=== PATIENT | male | born 1975 | race Caucasian/White ===

== ENCOUNTER 2016-08-01 10:54 | Emergency (ER) | payer BC, OTHER ==
[2016-08-01] MEDS ORDERED: Bacitracin/Neomycin/Polymyxin B Oint 0.9 GM U/D Packet TOP ONE (11:16)
--- NOTE | 2016-08-01 11:16 | EDM.PDOC ---
ED HPI GENERAL MEDICAL PROBLEM - General Chief Complaint: Laceration Stated Complaint: left forearm laceration Time Seen by Provider: 08/01/16 11:05 Source of Information: Reports: Patient, Old records ([facility] chart/EMR) History Limitations: Reports: No limitations - History of Present Illness INITIAL COMMENTS - FREE TEXT/NARRATIVE: The patient was brought to the emergency room via private automobile by his coworker for evaluation of a Worker's Compensation injury, which occurred at about 10:45 a.m. this morning. The patient was unloading a metal siding from a pallet when a piece of the siding slipped and cut his left arm. He has not injured this arm in the past and is right-handed. Note his last tetanus booster on 06/26/07 was confirmed by the ER nurse today. The patient denies any chest pain/pressure, heart flutter, dizziness, orthostasis, orthopnea, diaphoresis, paresthesias, recent decreased exercise tolerance, or any other anginal-type symptoms. No recent history of abdominal pain, heartburn, nausea, diarrhea, melena, gross hematochezia, or any food intolerance, including fatty foods, etc.. The patient also denies any recent fever, cough, wheezing, dyspnea , etc.. No history of recent headaches, visual changes, diplopia, change in mental status, or other change in neurological status. He rates his discomfort at 1/10 sharp in nature with no history of foreign body, paresthesias, neurological deficits, or other complaints or injury etc. Onset: today, sudden Onset Date: 08/01/16 Onset Time: 10:45 Duration: Constant Location: Reports: upper extremity, right. Denies: head, face, neck, chest, abdomen, back, pelvis, upper extremity, left, lower extremity, left, lower extremity, right, radiates to: Quality: Reports: Same as previous episode, Sharp Severity: mild Improves with: Reports: Rest Worsens with: Reports: Movement Context: Reports: Trauma (As above) Associated Symptoms: Reports: no other symptoms. 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 Denies: Afib, Aneurysm, Arrhythmia, Blood clots/VTE/DVT, CAD, High cholesterol , PR, Syncope Other Cardiovascular History: Hypertension with no required current medical therapy at this time, patient does not know his cholesterol status, benign heart murmur as a child with spontaneous resolution Respiratory History: Reports: None. Denies: Asthma, COPD, Intubation, previous , PE, Pneumothorax, Sleep apnea, TB Gastrointestinal History: Reports: None. Denies: Celiac disease, Cholelithiasis , Chronic constipation, Chronic diarrhea, Fecal incontinence, Gastritis, GERD, GI bleed, Hepatitis, Hiatal hernia, Inflammatory bowel disease, Irritable bowel syndrome, Jaundice, Pancreatitis, PUD Genitourinary History: Denies: Acute renal failure, Chronic renal insuffiency, Renal calculus, STD, Urinary incontinence, UTI, recurrent Musculoskeletal History: Reports: Arthritis, Back pain, chronic, Osteoarthritis , Other (see below). Denies: Amputation, Fracture, Gout, Neck pain, chronic, RA , SLE Other Musculoskeletal History: History of left-sided sciatica in 2011 Neurological History: Reports: Concussion, Head trauma, Other (see below). Denies: Cerebral aneurysms, CVA, Headaches, chronic, Migraines, MS, Neuropathy, peripheral, Parkinson's, Seizure, TIA Other Neuro History: Borderline Head concussion on 08/13/15 Psychiatric History: Reports: Anxiety, Depression. Denies: Abuse, victim of, ADD, ADHD, Addiction, Psych Hospitalization(s), PTSD, Suicide attempt, Suicidal ideation Endocrine/Metabolic History: Denies: Diabetes, type I, Diabetes, type II, Hypothyroidism, IDDM Hematologic History: Reports: None. Denies: Anemia, Blood transfusion(s), Iron deficiency Immunologic History: Reports: None. Denies: AIDS, HIV, SLE Oncologic (Cancer) History: Reports: None. Denies: Basal cell carcinoma, Hodgkin's Lymphoma, Leukemia, Lymphoma, Malignant melanoma, Non-Hodgkin's Lymphoma, Squamous cell carcinoma Dermatologic History: Reports: None. Denies: Eczema, Psoriasis - Infectious Disease History Infectious Disease History: Reports: Chicken pox. Denies: C-difficile, Measles , MRSA, Mumps, Pertussis (whooping cough), Rheumatic Fever, Rubella, Scarlet fever, Shingles, TB, VRE - Past Surgical History Head Surgeries/Procedures: Reports: None HEENT Surgical History: Reports: None. Denies: Adenoidectomy, Cataract surgery , Eye surgery, Laser surgery, LASIK, Myringotomy w tube(s), Naso-sinus surgery, Oral surgery, Tonsillectomy Cardiovascular Surgical History: Reports: None. Denies: Varicose, Vascular surgery Respiratory Surgical History: Reports: None. Denies: Thoracentesis GI Surgical History: Reports: Hernia, inguinal, Other (see below). Denies: Appendectomy, Cholecystectomy, Colonoscopy, EGD, Hernia, abdominal, Hernia repair/other Other GI Surgeries/Procedures: Right-sided inguinal hernia repair at about age 23 Male Surgical History: Reports: Circumcision, Other (see below). Denies: Vasectomy Other Male Surgeries/Procedures: Circumcision as an infant Endocrine Surgical History: Reports: None. Denies: Thyroid biopsy Neurological Surgical History: Reports: None. Denies: C-Spine, Discectomy, Laminectomy, Lumbar spine, Spinal fusion, Vertebroplasty Musculoskeletal Surgical History: Reports: None. Denies: Arthroscopic procedure , Carpal tunnel, Ganglion cyst, Joint replacement, ORIF, Shoulder surgery Oncologic Surgical History: Reports: None Dermatological Surgical History: Reports: None - Past Imaging History Past Imaging History: Reports: CAT scan (CT scan of the lumbar spine in 2011) Social & Family History - Tobacco Use Smoking Status *Q: Never Smoker Tobacco Use Within Last Twelve Months: No Smoking Cessation Information Provided To Patient: No Second Hand Smoke Exposure: No Second Hand Smoke Education Provided: No - Caffeine Use Caffeine Use: Reports: Coffee (1 coffee per day), Energy drinks (1 energy drink per week), Soda (Two sodas per week) Other Caffeine Use: coffee 1 20 0z. pop occasional. energy drinks occasional - Alcohol Use Alcohol Use History: Yes Days Per Week of Alcohol Use: 7 (DWI at age 21 with no previous problems of alcohol abuse or treatment) Number of Drinks Per Day: 5 (Usually beer) Total Drinks Per Week: 35 Alcohol Use in Last Twelve Months: Yes Alcohol Use Frequency: Daily - Recreational Drug Use Recreational Drug Use: No Drug Use in Last 12 Months: No Recreational Drug Type: Denies: Amphetamines (Speed), Cocaine, Heroin, Inhalants (Glues, Solvents, Aerosols), LSD (Acid), Marijuana/Hashish, Methamphetamine, Morphine - Living Situation & Occupation Living situation: Reports: (2005, 2 children), with family Occupation: employed ([employer]) ED ROS GENERAL - Review of Systems Review Of Systems: ROS reveals no pertinent complaints other than HPI. ED EXAM, SKIN/RASH Exam: See Below Exam Limited By: No Limitations General Appearance: Alert, WD/WN, No Apparent Distress Head: Atraumatic, Normocephalic. No: Facial Swelling, Facial Tenderness, Sinus Tenderness Neck: Normal Inspection, Supple, Non-Tender, Full Range of Motion. No: Lymphadenopathy (L), Lymphadenopathy (R), Thyromegaly Respiratory/Chest: No Respiratory Distress, Lungs Clear, Normal Breath Sounds, No Accessory Muscle Use, Chest Non-Tender. No: Pleural Rub Cardiovascular: Normal Peripheral Pulses, Regular Rate, Rhythm, No Edema, No Gallop, No JVD, No Murmur, No Rub. No: Gallop/S3, Gallop/S4 Peripheral Pulses: 4+: radial (L), radial (R) GI/Abdominal: Normal Bowel Sounds, Soft, Non-Tender, No Organomegaly, No Distention, No Abnormal Bruit, No Mass, Pelvis Stable. No: Guarding (Male) Exam: Deferred Rectal (Males) Exam: Deferred Back Exam: Normal Inspection, Full Range of Motion. No: CVA Tenderness (L), CVA Tenderness (R), Muscle Spasm Extremities: Normal Range of Motion, No Pedal Edema, Normal Capillary Refill, Arm Pain (Mild at laceration site), Other (4 cm in length laceration over the distal radial surface of the left forearm with no foreign body, deformity, or significant vascular/neurological injury) Neurological: Alert, Oriented, CN II-XII Intact, Normal Cognition, Normal Gait, No Motor/Sensory Deficits Psychiatric: Normal Affect, Normal Mood Skin: Warm, No Rash, Tattoo(s) (Multiple), Wound/Incision (As above) Location, Skin: upper extremity, left Characteristics: linear Associated features: tenderness (Mild). No: warmth, swelling, lymphangitis, inflammation, weeping Lymphatic: No Adenopathy ED SKIN PROCEDURES - Laceration/Wound Repair Left Lower Medial Distal Dorsal Arm Lac/wound length in cm: 4 Appearance: subcutaneous, linear, clean Distal NVT: neuro & vascular intact, no tendon injury Anesthetic type: local Local anesthesia - Lidocaine (Xylocaine): 1% plain Local anesthetic volume: other (8ml) Skin prep: providone-iodine (betadine) Saline irrigation (cc's): 0 Exploration/Debridement/Repair: wound explored, in a bloodless field, explored to base, no foreign material found Closed with: sutures Suture size: 4-0 # of sutures: 8 Suture type: nylon, interrupted, simple Sterile dressing applied: nurse Tetanus status addressed: Yes Complications: No Course - Vital Signs Last Recorded V/S: Last Vital Signs Temp 36.8 C 08/01/16 11:08 Pulse 59 L 08/01/16 11:08 Resp 18 08/01/16 11:08 BP 156/96 H 08/01/16 11:08 Pulse Ox 98 08/01/16 11:08 Vital Signs - 24 hr 08/01/16 08/01/16 11:08 11:52 Temperature [ 36.8 C Temporal] Pulse, 59 L Peripheral [ Right Pulse Oximetry] Respiratory 18 Rate Blood Pressure 156/96 H 150/96 H [Right Upper Arm] O2 Sat by Pulse 98 Oximetry - Orders/Labs/Meds Orders: Active Orders 24 hr Category Date Time Status Vaccines to be Administered [RC] PER UNIT ROUTINE Care 08/01/16 11:47 Ordered Diphth,Pertuss(Acell),Tet Vac [Adacel] Med 08/01/16 11:46 Once 0.5 ml IM .ONCE ONE Obtain Past Medical Record [OM.PC] Routine Oth 08/01/16 11:16 Ordered Labs: None Meds: Medications Discontinued Medications Generic Name Dose Route Start Last Admin Trade Name Ben PRN Reason Stop Dose Admin Lidocaine HCl 5 ml 08/01/16 11:16 08/01/16 11:23 Xylocaine-Mpf 1% INJECT 08/01/16 11:17 5 ml ONETIME ONE Administration Lidocaine HCl 5 ml 08/01/16 11:17 08/01/16 11:23 Xylocaine-Mpf 1% INJECT 08/01/16 11:18 5 ml ONETIME ONE Administration Neomycin/Polymyxin/Bacitracin 1 each 08/01/16 11:16 08/01/16 11:22 Triple Antibiotic Oint TOP 08/01/16 11:17 1 each ONETIME ONE Administration - Radiology Interpretation Free Text/Narrative:: None Departure - Departure Time of Disposition: 12:05 Disposition: Home, Self-Care 01 Condition: good Clinical Impression: Laceration Hypertension Qualifiers: Hypertension type: essential hypertension Qualified Code(s): I10 - Essential ( primary) hypertension Osteoarthritis Qualifiers: Osteoarthritis location: multiple joints Osteoarthritis type: primary Qualified Code(s): M15.0 - Primary generalized (osteo)arthritis - Discharge Information Instructions: Laceration Care, Adult, [id number], Stitches, Timur, or Adhesive Wound Closure, [id number] Forms: ED Department Discharge, Return to Work/School Form Additional Instructions: 1. Followup with your regular provider in 10-14 days as directed for reevaluation and removal of 8 stitches. 2. Tylenol 650 mg by mouth every 4 hours and/or OTC ibuprofen 2-3 tabs by mouth every 6 hours with food as directed./needed. 3. Work excuse- See Form 4. Antibacterial soap wash/soak with subsequent antibacterial dressing such as Neosporin, etc. as directed 2 times per day until the wound or laceration site completely heals. Keep the area clean and dry with activity restrictions as discussed. 5. Close followup of your blood pressures and pulses with your regular provider with medical therapy depending on her clinical course 6. Stop all energy drink use with continued limited caffeine intake 7. Activity restrictions as discussed - Problem List & Annotations (1) Laceration SNOMED Code(s): 102268910 Code(s): [id number] - Status: Acute Priority: High Onset Date: 08/01/16 Annotation/Comment:: Excellent results with laceration repair as above. Workmen's Compensation and work excuse forms were completed. Activity restrictions and wound care instructions discussed. DTaP given (2) Hypertension SNOMED Code(s): 15073948 Code(s): I10 - ESSENTIAL (PRIMARY) HYPERTENSION Status: Chronic Priority : Medium Annotation/Comment:: No Medical therapy currently. Continue to observe closely by his regular provider and discontinuation of energy drinks as recommended with patient having one energy drink prior to arrival Qualifiers: Hypertension type: essential hypertension Qualified Code(s): I10 - Essential (primary) hypertension (3) Osteoarthritis SNOMED Code(s): 231762039 Code(s): M19.90 - UNSPECIFIED OSTEOARTHRITIS, UNSPECIFIED SITE Status: Chronic Priority: Medium Annotation/Comment:: Stable by his history Qualifiers: Osteoarthritis location: multiple joints Osteoarthritis type: primary Qualified Code(s): M15.0 - Primary generalized (osteo)arthritis - Problem List Review Problem List Initiated/Reviewed/Updated: Yes - My Orders Last 24 Hours: My Active Orders 08/01/16 11:16 Obtain Past Medical Record [OM.PC] Routine 08/01/16 11:46 Diphth,Pertuss(Acell),Tet Vac [Adacel] 0.5 ml IM .ONCE ONE 08/01/16 11:47 Vaccines to be Administered [RC] PER UNIT ROUTINE - Assessment/Plan Last 24 Hours: My Active Orders 08/01/16 11:16 Obtain Past Medical Record [OM.PC] Routine 08/01/16 11:46 Diphth,Pertuss(Acell),Tet Vac [Adacel] 0.5 ml IM .ONCE ONE 08/01/16 11:47 Vaccines to be Administered [RC] PER UNIT ROUTINE Assessment:: As above Plan: As above. Extensive precautions were given to the patient, who is in agreement with the treatment plan. See Patient Instructions for further treatment and plan.
[2016-08-01] MEDS ORDERED: Diphtheria,Pertussis(Acell),Tetanus Vaccine 0.5 ML SDV IM ONE (11:46)
[2016-08-01 11:53] VITALS: BP 150/96
== END 2016-08-01 12:05 | disposition home or self-care (01) ==
LOC: LL.ED 10:54
DX: S51.812A Laceration without foreign body of left forearm, initial encounter (principal); I10 Essential (primary) hypertension; M15.0 Primary generalized (osteo)arthritis; F41.9 Anxiety disorder, unspecified; F32.9 Major depressive disorder, single episode, unspecified; W26.9XXA Contact with unspecified sharp object(s), initial encounter; Y99.0 Civilian activity done for income or pay
CPT/HCPCS: 12002; 90471; 90715; 99283

== ENCOUNTER 2020-02-21 08:16 | Emergency (ER) | payer OTHER ==
--- NOTE | 2020-02-21 08:59 | EDM.PDOC ---
ED HPI GENERAL MEDICAL PROBLEM - General Chief Complaint: Chest Pain Stated Complaint: chest pain Time Seen by Provider: 02/21/20 08:50 Source of Information: Reports: Patient, Old Records ([facility] chart/EMR) History Limitations: Reports: No Limitations - History of Present Illness INITIAL COMMENTS - FREE TEXT/NARRATIVE: The patient was brought to the emergency room via private automobile by a coworker for evaluation of /10 left-sided chest pain with symptoms lasting only for a few seconds and starting at about 5 AM this morning with the patient already awake at that time. No history of radiation of his chest discomfort with no medications taken to this point. He has had similar symptoms during the last 1-2 years with symptoms occurring on about a monthly basis and still lasting only a few seconds with each episode, however note current increased stressors during the last 3 months secondary to separation from his . The patient denies any chest pressure, heart flutter, dizziness, orthostasis, orthopnea, diaphoresis, paresthesias, recent decreased exercise tolerance, or any other anginal-type symptoms. No recent history of abdominal pain, heartburn, nausea, diarrhea, melena, gross hematochezia, or any food intolerance, including fatty foods, etc. with normal bowel movement earlier this morning. He denies any gross hematuria, colic, or other UTI symptoms. The patient also denies any recent fever, cough, wheezing, dyspnea, etc.. No history of recent headaches, visual changes, diplopia, change in mental status, or other change in neurological status. Onset: Today, Sudden, Other (As above) Onset Date: 02/21/20 Onset Time: 05:00 Duration: Resolved Prior to Arrival Location: Reports: Chest. Denies: Head, Face, Neck, Abdomen, Back, Pelvis, Upper Extremity, Left, Upper Extremity, Right, Radiates to Quality: Reports: Sharp Severity: Mild Improves with: Reports: None Worsens with: Reports: None Context: Reports: Other (As above). Denies: Sick Contact, Trauma Associated Symptoms: Denies: Confusion, Chest Pain, Cough, cough w sputum, Diaphoresis, Fever/Chills, Headaches, Loss of Appetite, Malaise, Nausea/Vomiting, Rash, Seizure, Shortness of Breath, Syncope, Weakness Treatments EYEGLASS CUTTER: Reports: Other (see below) (None) left sided chest pain Pain Score (Numeric/FACES): 4 - Related Data Allergies Allergy/AdvReac Type Severity Reaction Status Date / Time amlodipine Allergy Swelling Verified 02/21/20 10:02 Home Meds: Home Meds Citalopram Hydrobromide [Celexa] 10 mg PO DAILY #14 tablet 02/21/20 [Rx] Melatonin 5 mg PO BEDTIME 02/21/20 [History] dilTIAZem HCL [Diltiazem 24Hr Cd] 180 mg PO DAILY #30 cap.er.24h 02/21/20 [Rx] Past Medical History HEENT History: Reports: Impaired Vision, Other (See Below). Denies: Allergic Rhinitis, Cataract, Glaucoma, Hard of Hearing, Macular Degeneration, Otitis Media, Retinal Detachment Other HEENT History: OTC reading glasses. Cardiovascular History: Reports: Heart Murmur, Hypertension, Other (See Below). Denies: Afib, Aneurysm, Arrhythmia, Blood Clots/VTE/DVT, CAD, Heart Failure, High Cholesterol, NE, PVD, Syncope Other Cardiovascular History: Hypertension with patient noncompliant with his required current medical therapy at this time, patient does not know his cholesterol status, benign heart murmur as a child with spontaneous resolution Respiratory History: Reports: None. Denies: Asthma, Bronchitis, Recurrent, COPD, Intubation, Difficult, Intubation, Previous, PE, Pneumonia, Recurrent, Pneumothorax, Sleep Apnea, TB Gastrointestinal History: Reports: None. Denies: Celiac Disease, Cholelithia sis, Chronic Constipation, Chronic Diarrhea, Colon Polyp, Gastritis, GERD, GI Bleed, Hepatitis, Inflammatory Bowel Disease, Irritable Bowel Syndrome, Jaundice, Pancreatitis, PUD Genitourinary History: Reports: None. Denies: Acute Renal Failure, BPH, Chronic Renal Insuffiency, Renal Calculus, Retention, Urinary, STD, Urinary Incontinence, UTI, Recurrent Musculoskeletal History: Reports: Arthritis, Back Pain, Chronic, Osteoarthritis, Other (See Below). Denies: Amputation, Fracture, Gout, Neck Pain, Chronic, Osteoporosis (Not having), RA, SLE Other Musculoskeletal History: History of left-sided sciatica in 2011 Neurological History: Reports: Concussion, Head Trauma, Other (See Below). Denies: Cerebral Aneurysms, Headaches, Chronic, Migraines, MS, Parkinson's, Seizure, TIA, Vertigo Other Neuro History: Borderline Head concussion on 08/13/15 Psychiatric History: Reports: Anxiety, Depression, Panic Attack, Other (See Below). Denies: Abuse, Victim of, ADD, ADHD, Addiction, Psych Hospitalization(s), Psychosis, PTSD, Suicide Attempt, Suicidal Ideation Other Psychiatric History: Chronic insomnia secondary to stressors. Endocrine/Metabolic History: Reports: None. Denies: Diabetes, Type I, Diabetes, Type II, Diabetes Mellitus, Type 3c, Hypothyroidism, IDDM, Obesity/BMI 30+ Hematologic History: Reports: None. Denies: Anemia, Blood Transfusion(s), Iron Deficiency Immunologic History: Reports: None. Denies: AIDS, HIV, SLE Oncologic (Cancer) History: Reports: None. Denies: Basal Cell Carcinoma, Colon, Hodgkin's Lymphoma, Leukemia, Lymphoma, Malignant Melanoma, Non-Hodgkin's Lymphoma, Prostate, Squamous Cell Carcinoma Dermatologic History: Reports: None. Denies: Eczema, Psoriasis - Infectious Disease History Infectious Disease History: Reports: Chicken Pox. Denies: C-Difficile, Measles, Meningitis, Mononucleosis, MRSA, Mumps, Novel Coronavirus, Pertussis (Whooping Cough), Rheumatic Fever, Rubella, Scarlet Fever, Shingles, TB, VRE - Past Surgical History Head Surgeries/Procedures: Reports: None. Denies: Craniotomy HEENT Surgical History: Reports: None. Denies: Adenoidectomy, Eye Surgery, LASIK, Myringotomy w Tube(s), Naso-Sinus Surgery, Oral Surgery, Radiocarotid Ec tj, Tonsillectomy Cardiovascular Surgical History: Reports: None. Denies: Varicose Respiratory Surgical History: Reports: None. Denies: Thoracentesis GI Surgical History: Reports: Hernia, Inguinal, Other (See Below). Denies: Appendectomy, Cholecystectomy, Colonoscopy, EGD, Hernia, Abdominal, Hernia Repair/Other Other GI Surgeries/Procedures: Right-sided inguinal hernia repair at about age 23. Male Surgical History: Reports: Circumcision, Vasectomy, Other (See Below) Other Male Surgeries/Procedures: Circumcision as an infant. Vasectomy in about 2019. Endocrine Surgical History: Reports: None. Denies: Thyroid Biopsy Neurological Surgical History: Reports: None. Denies: C-Spine, Discectomy, Laminectomy, Lumbar Spine, Scoliosis, Spinal Fusion, Thoracic Spine, Vertebroplasty Musculoskeletal Surgical History: Reports: None. Denies: Carpal Tunnel, ORIF, Shoulder Surgery Oncologic Surgical History: Reports: None Dermatological Surgical History: Reports: None - Past Imaging History Past Imaging History: Reports: CAT Scan (CT scan of the lumbar spine in 2011.) Social & Family History - Family History Cardiac: Reports: Hypertension, Other (See Below). Denies: Afib, Aneurysm, Arrhythmia, Blood Clots/VTE/DVT, CAD, Cardiomyopathy, Heart Failure, Heart Murmur, High Cholesterol, NE, Pacemaker, Syncope Other Cardiac Family History: Hypertension mother, maternal grandparents, and maternal uncle. - Tobacco Use Tobacco Use Status *Q: Never Tobacco User Tobacco Use Within Last Twelve Months: No Used Tobacco, but Quit: No Smoking Cessation Information Provided To Patient: No Second Hand Smoke Exposure: No Second Hand Smoke Education Provided: No - Caffeine Use Caffeine Use: Reports: Energy Drinks (1-2-week), Tea (1 large cup per day.). Denies: Coffee, Soda - Alcohol Use Alcohol Use History: Yes Days Per Week of Alcohol Use: 7 Number of Drinks Per Day: 3 Number of Drinks Per Day Comment: DWI at age 21 with no previous problems with alcohol abuse or treatment. Usually drinks beer. Total Drinks Per Week: 21 Alcohol Use in Last Twelve Months: Yes Alcohol Use Frequency: Daily - Recreational Drug Use Recreational Drug Use: No Drug Use in Last 12 Months: No Recreational Drug Type: Denies: Amphetamines (Speed), Cocaine, Heroin, Inhalants (Glues, Solvents, Aerosols), LSD (Acid), Marijuana/Hashish, Methamphetamine, Morphine, Oxycodone - Living Situation & Occupation Living situation: Reports: (2004 however currently from his wi fe since October 2019. 2 children.), with Family (2 children) Occupation: Employed (Works for the 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 ED EXAM, GENERAL - Physical Exam Exam: See Below Exam Limited By: No Limitations General Appearance: Alert, WD/WN, No Apparent Distress, Anxious (Moderate) Eye Exam: Bilateral Eye: EOMI, Normal Inspection (No nystagmus), PERRL Ears: Normal External Exam, Normal Canal, Hearing Grossly Normal, Normal TMs Nose: Normal Inspection, Normal Mucosa, No Blood Throat/Mouth: Normal Inspection, Normal Lips, Normal Teeth, Normal Gums, Normal Oropharynx, Normal Voice, No Airway Compromise. No: Dysphagia, Perioral Cyanosis Head: Atraumatic, Normocephalic. No: Facial Swelling, Facial Tenderness, Sinus Tenderness Neck: Normal Inspection, Supple, Non-Tender, Full Range of Motion. No: Carotid Bruit, Lymphadenopathy (L), Lymphadenopathy (R), Thyromegaly Respiratory/Chest: No Respiratory Distress, Lungs Clear, Normal Breath Sounds, No Accessory Muscle Use, Chest Non-Tender. No: Pleural Rub, Retractions Cardiovascular: Normal Peripheral Pulses, Regular Rate, Rhythm, No Edema, No Gallop, No JVD, No Murmur, No Rub. No: Gallop/S3, Gallop/S4, Friction Rub Peripheral Pulses: 2+: Radial (L), Radial (R), Dorsalis Pedis (L), Dorsalis Pedis (R) GI/Abdominal: Normal Bowel Sounds, Soft, Non-Tender, No Organomegaly, No Distention, No Abnormal Bruit, No Mass. No: Guarding (Male) Exam: Deferred Rectal (Males) Exam: Deferred Back Exam: Normal Inspection, Full Range of Motion. No: CVA Tenderness (L), CVA Tenderness (R), Muscle Spasm Extremities: Normal Inspection, Normal Range of Motion, Non-Tender, No Pedal Edema, Normal Capillary Refill. No: Peggy's Sign Neurological: Alert, Oriented, CN II-XII Intact, Normal Cognition, Normal Gait, Normal Reflexes (Negative Babinski's), No Motor/Sensory Deficits Psychiatric: Anxious (Moderate), Depressed Mood (Mild with good eye contact). No: Flat Affect, Tearful Skin Exam: Warm, Dry, Intact, Normal Color, No Rash, Tattoo(s) (Multiple). No: Diaphoretic, Ecchymosis, Petechiae, Wound/Incision Lymphatic: No Adenopathy #1 Interpretation EKG Date: 02/21/20 Time: 08:36 Rhythm: NSR Rate (Beats/Min): 74 [place]: Normal (Left cardiac access) P-Wave: Present QRS: Normal (0.09 seconds) ST-T: Normal QT: Normal NE/PQ Interval: 0.15 seconds representing a borderline short NE interval with no delta waves noted. Mild poor R wave progression in the anterior leads Comparison: NA - No Prior EKG EKG Interpretation Comments: 1. No acute ischemic changes 2. Borderline short NE interval Course - Vital Signs Last Recorded V/S: Last Vital Signs Temp 36.3 C 02/21/20 08:17 Pulse 76 02/21/20 10:15 Resp 17 02/21/20 10:15 BP 153/97 H 02/21/20 10:15 Pulse Ox 99 02/21/20 10:15 Vital Signs - 24 hr 02/21/20 02/21/20 02/21/20 08:16 08:17 08:30 Temperature [ 36.3 C Temporal] Pulse, Peripheral Pulse, 76 78 83 Peripheral [ Right Pulse Oximetry] Respiratory 13 9 L 17 Rate Blood Pressure Blood Pressure 176/106 H 176/106 H 156/103 H [Right Upper Arm] O2 Sat by Pulse 100 98 99 Oximetry O2 Sat by Pulse Oximetry [Room Air] 02/21/20 02/21/20 02/21/20 09:00 09:01 09:10 Temperature [ Temporal] Pulse, Peripheral Pulse, 81 Peripheral [ Right Pulse Oximetry] Respiratory 19 Rate Blood Pressure 161/102 H Blood Pressure 161/102 H [Right Upper Arm] O2 Sat by Pulse 98 Oximetry O2 Sat by Pulse 99 Oximetry [Room Air] 02/21/20 02/21/20 02/21/20 09:12 09:25 09:27 Temperature [ Temporal] Pulse, Peripheral Pulse, 105 H 81 92 Peripheral [ Right Pulse Oximetry] Respiratory 17 18 16 Rate Blood Pressure Blood Pressure 143/96 H 154/104 H 165/105 H [Right Upper Arm] O2 Sat by Pulse 98 99 98 Oximetry O2 Sat by Pulse Oximetry [Room Air] 02/21/20 02/21/20 02/21/20 09:47 10:07 10:15 Temperature [ Temporal] Pulse, 88 Peripheral Pulse, 62 76 Peripheral [ Right Pulse Oximetry] Respiratory 11 L 17 Rate Blood Pressure 163/118 H Blood Pressure 182/100 H 153/97 H [Right Upper Arm] O2 Sat by Pulse 99 99 Oximetry O2 Sat by Pulse Oximetry [Room Air] - Orders/Labs/Meds Orders: Active Orders 24 hr Category Date Time Status Chest 1V Frontal [CR] Stat Exams 02/21/20 09:01 Taken Obtain Past Medical Record [OM.PC] Urgent Oth 02/21/20 09:01 Active Peripheral IV Insertion Adult [OM.PC] Stat Oth 02/21/20 09:01 Ordered Resuscitation Status Stat Resus Stat 02/21/20 09:01 Ordered EKG 12 Lead [EK] Stat Ther 02/21/20 08:30 Ordered Labs: Laboratory Tests 02/21/20 02/21/20 02/21/20 Range/Units 09:00 09:00 09:00 WBC 10.0 (4.0-10.2) K/uL RBC 4.96 (4.33-5.41) M/uL Hgb 15.6 (13.1-16.8) g/dL Hct 45.3 (39.0-49.0) % MCV 91.3 (84.0-98.0) fL MCH 31.5 (28.2-33.3) pg MCHC 34.4 (31.7-36.0) g/dL RDW 11.6 (11.2-14.1) % Plt Count 298 (150-350) K/uL Neut % (Auto) 76.9 (45.0-80.0) % Lymph % (Auto) 15.3 (10.0-50.0) % [place] % (Auto) 6.7 (2.0-14.0) % Eos % (Auto) 0.5 (0.0-5.0) % Baso % (Auto) 0.6 (0.0-2.0) % Neut # (Auto) 7.68 H (1.40-7.00) K/uL Lymph # (Auto) 1.53 (0.50-3.50) K/uL [place] # (Auto) 0.67 (0.00-1.00) K/uL Eos # (Auto) 0.05 (0.00-0.50) K/uL Baso # (Auto) 0.06 (0.00-0.20) K/uL PT 9.9 (9.5-12.0) SEC INR 1.0 APTT 27.0 (24.5-32.8) SEC D-Dimer, Quantitative < 100 (0-400) ng/mL Sodium (136-145) mmol/L Potassium (3.5-5.1) mmol/L Chloride (98-107) mmol/L Carbon Dioxide (21.0-32.0) mmol/L BUN (7-18) mg/dL Creatinine (0.51-1.17) mg/dL Est Cr Clr Drug Dosing mL/min Estimated GFR (MDRD) mL/min Glucose (74-106) mg/dL Lactic Acid (0.4-2.0) mmol/L Uric Acid (2.6-7.2) mg/dL Calcium (8.5-10.1) mg/dL Magnesium (1.8-2.4) mg/dL Total Bilirubin (0.2-1.0) mg/dL AST (15-37) U/L ALT (12-78) U/L Alkaline Phosphatase (46-116) IU/L Creatine Kinase (26-308) U/L Creatine Kinase Index (0.0-2.5) % CK-MB (CK-2) (0.00-3.60) ng/mL Troponin I (0.000-0.056) ng/mL NT-Pro-B Natriuret Pep (0-125) pg/mL Total Protein (6.4-8.2) g/dL Albumin (3.4-5.0) g/dL TSH, Ultra Sensitive (0.358-3.740) mIU/mL 02/21/20 02/21/20 Range/Units 09:00 09:00 WBC (4.0-10.2) K/uL RBC (4.33-5.41) M/uL Hgb (13.1-16.8) g/dL Hct (39.0-49.0) % MCV (84.0-98.0) fL MCH (28.2-33.3) pg MCHC (31.7-36.0) g/dL RDW (11.2-14.1) % Plt Count (150-350) K/uL Neut % (Auto) (45.0-80.0) % Lymph % (Auto) (10.0-50.0) % [place] % (Auto) (2.0-14.0) % Eos % (Auto) (0.0-5.0) % Baso % (Auto) (0.0-2.0) % Neut # (Auto) (1.40-7.00) K/uL Lymph # (Auto) (0.50-3.50) K/uL [place] # (Auto) (0.00-1.00) K/uL Eos # (Auto) (0.00-0.50) K/uL Baso # (Auto) (0.00-0.20) K/uL PT (9.5-12.0) SEC INR APTT (24.5-32.8) SEC D-Dimer, Quantitative (0-400) ng/mL Sodium 134 L (136-145) mmol/L Potassium 4.3 (3.5-5.1) mmol/L Chloride 99 (98-107) mmol/L Carbon Dioxide 23.7 (21.0-32.0) mmol/L BUN 11 (7-18) mg/dL Creatinine 0.96 (0.51-1.17) mg/dL Est Cr Clr Drug Dosing 89.53 mL/min Estimated GFR (MDRD) > 60 mL/min Glucose 99 (74-106) mg/dL Lactic Acid 1.4 (0.4-2.0) mmol/L Uric Acid 6.8 (2.6-7.2) mg/dL Calcium 9.1 (8.5-10.1) mg/dL Magnesium 1.9 (1.8-2.4) mg/dL Total Bilirubin 0.7 (0.2-1.0) mg/dL AST 42 H (15-37) U/L ALT 66 (12-78) U/L Alkaline Phosphatase 90 (46-116) IU/L Creatine Kinase 120 (26-308) U/L Creatine Kinase Index 0.3 (0.0-2.5) % CK-MB (CK-2) 0.40 (0.00-3.60) ng/mL Troponin I 0.000 (0.000-0.056) ng/mL NT-Pro-B Natriuret Pep 52 (0-125) pg/mL Total Protein 7.7 (6.4-8.2) g/dL Albumin 4.3 (3.4-5.0) g/dL TSH, Ultra Sensitive 2.142 (0.358-3.740) mIU/mL Meds: Medications Discontinued Medications Generic Name Dose Route Start Last Admin Trade Name Freq PRN Reason Stop Dose Admin Aspirin 324 mg 02/21/20 09:01 02/21/20 09:10 Aspirin CHEW 02/21/20 09:02 324 mg ONETIME ONE Administration Famotidine 40 mg 02/21/20 09:01 02/21/20 09:11 Pepcid IVPUSH 02/21/20 09:02 40 mg ONETIME ONE Administration Metoprolol Tartrate 2.5 mg 02/21/20 09:43 02/21/20 09:47 Lopressor IVPUSH 02/21/20 09:44 2.5 mg ONETIME ONE Administration Nitroglycerin 0.4 mg 02/21/20 09:02 02/21/20 09:10 Nitrostat SL 02/22/20 09:03 0.4 mg ONETIME STA Administration Nitroglycerin 0.4 mg 02/21/20 09:42 02/21/20 09:47 Nitrostat SL 02/22/20 09:43 0.4 mg ONETIME STA Administration Sodium Chloride 10 ml 02/21/20 09:01 02/21/20 09:47 Saline Flush FLUSH 10 ml ASDIRECTED PRN Administration Keep Vein Open Ticagrelor 180 mg 02/21/20 09:01 02/21/20 09:10 Brilinta PO 02/21/20 09:02 180 mg ONETIME ONE Administration - Radiology Interpretation Free Text/Narrative:: telemetry monitor shows normal sinus rhythm with heart rate average in the 70s to 80s however occasional brief bradycardia in the high 50s and tachycardia in the 110s with no other extrasystoles or arrhythmia noted. Chest x-ray, portable, shows mild prominence of proximal aortic arch with no evidence of aneurysm, cardiomegaly, CHF, pulmonary infiltrates, pneumothorax, etc. Mild pulmonary obstructive disease noted. Departure - Departure Time of Disposition: 10:37 Disposition: Home, Self-Care 01 Condition: Good Clinical Impression: Mixed anxiety depressive disorder, Hyponatremia, LFT elevation Chest pain Qualifiers: Chest pain type: precordial pain Qualified Code(s): R07.2 - Precordial pain Hypertension Qualifiers: Hypertension type: essential hypertension Qualified Code(s): I10 - Essential (primary) hypertension Osteoarthritis Qualifiers: Osteoarthritis location: multiple joints Osteoarthritis type: primary Qualified Code(s): M89.49 - Other hypertrophic osteoarthropathy, multiple sites Prescriptions: Citalopram Hydrobromide [Celexa] 10 mg PO DAILY #14 tablet dilTIAZem HCL [Diltiazem 24Hr Cd] 180 mg PO DAILY #30 cap.er.24h Instructions: Aspirin, ASA chewable tablets, Diltiazem extended-release capsules or tablets, Generalized Anxiety Disorder, Adult, Citalopram tablets, Ticagrelor oral tablet, Famotidine injection, Nonspecific Chest Pain, Adult, [id number], Hypertension, Adult, [id number], Nitroglycerin sublingual tablets, Metoprolol injection Referrals: Sonal Bernal PA-C [Primary Care Provider] - Forms: ED Department Discharge, ED Return to Work/School Form Additional Instructions: 1. Followup with your regular provider in 10-14 days as directed for reevaluation and recommended 12-hour fasting comprehensive metabolic panel, lipid panel, and glycosylated hemoglobin with further blood work, repeat EKG, etc. depending on your symptoms at that time. Bring these discharge instructions with you to that visit. 2. Continue to observe your blood pressures and pulses closely through your regular provider with consideration of a Cardiolite stress test once your blood pressure is under good control. 3. Discontinue all energy drink use LAVONNE with decrease of caffeine and alcohol intake also strongly advised as discussed. 4. Update your influenza booster LAVONNE. 5. Work excuse- See Form 6. Immediately after this visit verify that your cellular telephone's voicemail has been activated and is empty. Also verify that your home telephone's answering machine is operating properly and has space to receive messages. Note that it is sometimes necessary for us to be able to contact you at a later date to discuss your medical care. 7. Please remember that we are ALWAYS here for you and want to answer any questions you may have. Feel free to call the hospital any time and we call you back LAVONNE. 8. Strict medication compliance as discussed. 9. Initiate your Cardizem CD and Celexa LAVONNE this morning. 10. 50% maximum exercise activity until cleared by your regular provider and/your your heart status has been determined. 11. Discuss possible initiation of family/individual counseling with your regular provider at follow-up. Sepsis Event Note (ED) - Evaluation Sepsis Screening Result: No Definite Risk - Focused Exam Vital Signs: Vital Signs Temp Pulse Pulse Resp BP BP Pulse Ox 02/21/20 10:15 76 17 153/97 H 99 02/21/20 10:07 62 11 L 182/100 H 99 02/21/20 09:47 88 163/118 H 02/21/20 09:27 92 16 165/105 H 98 02/21/20 09:25 81 18 154/104 H 99 02/21/20 09:12 105 H 17 143/96 H 98 02/21/20 09:10 161/102 H 02/21/20 09:01 02/21/20 09:00 81 19 161/102 H 98 02/21/20 08:30 83 17 156/103 H 99 02/21/20 08:17 36.3 C 78 9 L 176/106 H 98 02/21/20 08:16 76 13 176/106 H 100 Pulse Ox 02/21/20 10:15 02/21/20 10:07 02/21/20 09:47 02/21/20 09:27 02/21/20 09:25 02/21/20 09:12 02/21/20 09:10 02/21/20 09:01 99 02/21/20 09:00 02/21/20 08:30 02/21/20 08:17 02/21/20 08:16 - Problem List & Annotations (1) Chest pain SNOMED Code(s): 16729544 Code(s): R07.9 - CHEST PAIN, UNSPECIFIED Status: Acute Priority: High Onset Date: 02/21/20 Annotation/Comment:: Chest pain protocol initiated immediately upon patient's arrival to the emergency room. Note complete resolution of his symptoms prior to arrival with no recurrence during his emergency room care. Note emotional component including possible earlier panic attack this morning. In addition, note significant hypertension as above/below. Work excuse provided. Activity restrictions as discussed. Consider scheduling Cardiolite stress test by his regular provider after his blood pressure is under better control. Qualifiers: Chest pain type: precordial pain Qualified Code(s): R07.2 - Precordial pain (2) Mixed anxiety depressive disorder SNOMED Code(s): 886477088 Code(s): F41.8 - OTHER SPECIFIED ANXIETY DISORDERS Status: Chronic Priority: High Annotation/Comment:: Poor control based on 10 days evaluation with increased stressors at this time secondary to his recent separation from his . Note previous medication noncompliance for at least 1 year with some possible gagging with previous Prozac. Various therapeutic options were discussed with initiation of Celexa therapy and close follow-up by his regular provider. Emotional and spiritual support provided. Patient may benefit from family counseling, individual counseling, etc.. No suicidal ideation, etc. (3) Hypertension SNOMED Code(s): 21829520 Code(s): I10 - ESSENTIAL (PRIMARY) HYPERTENSION Status: Chronic Priority: High Annotation/Comment:: Patient has been noncompliant with his medical therapy, including previous probable Norvasc and hydrochlorothiazide for at least several months. Note moderate caffeine intake at this time, including energy drinks, with this to be discontinued as per discharge instructions. Emotional status is also currently contributing to his elevated blood pressures. Sublingual nitroglycerin tablets and IV Lopressor given in the emergency room for blood pressure control. No headaches, visual changes or neurological deficits. Initiate Cardizem CD secondary to previous intolerance of Norvasc, including possible pedal edema. Close follow-up by regular provider as per discharge instructions. Qualifiers: Hypertension type: essential hypertension Qualified Code(s): I10 - Es sential (primary) hypertension (4) Osteoarthritis SNOMED Code(s): 591016813 Code(s): M19.90 - UNSPECIFIED OSTEOARTHRITIS, UNSPECIFIED SITE Status: Chronic Priority: Medium Annotation/Comment:: Stable by his history Qualifiers: Osteoarthritis location: multiple joints Osteoarthritis type: primary Qualified Code(s): M89.49 - Other hypertrophic osteoarthropathy, multiple sites (5) Hyponatremia SNOMED Code(s): 39748686 Code(s): E87.1 - HYPO-OSMOLALITY AND HYPONATREMIA Status: Acute Priority: Medium Onset Date: 02/21/20 Annotation/Comment:: Observe for now. Blood work at follow-up as per discharge instructions. (6) LFT elevation SNOMED Code(s): 495884951, 069735231 Code(s): R79.89 - OTHER SPECIFIED ABNORMAL FINDINGS OF BLOOD CHEMISTRY Status: Acute Priority: Medium Onset Date: 02/21/20 Annotation/Comment:: Possibly secondary to fatty liver. Lipid panel and other blood work at follow- up as per discharge instructions with dietary changes per his regular provider. - Problem List Review Problem List Initiated/Reviewed/Updated: Yes - My Orders Last 24 Hours: My Active Orders 02/21/20 08:30 EKG 12 Lead [EK] Stat 02/21/20 09:01 Chest 1V Frontal [CR] Stat Obtain Past Medical Record [OM.PC] Urgent Peripheral IV Insertion Adult [OM.PC] Stat Resuscitation Status Stat - Assessment/Plan Last 24 Hours: My Active Orders 02/21/20 08:30 EKG 12 Lead [EK] Stat 02/21/20 09:01 Chest 1V Frontal [CR] Stat Obtain Past Medical Record [OM.PC] Urgent Peripheral IV Insertion Adult [OM.PC] Stat Resuscitation Status Stat Assessment:: As above Plan: As above. Extensive precautions were given to the patient, who is in agreement with the treatment plan. See Patient Instructions for further treatment and plan.
[2020-02-21] MEDS ORDERED: Ticagrelor 90 MG Tab PO ONE (09:01)
[2020-02-21] MEDS ORDERED: Aspirin 81 MG Tab.Chew CHEW ONE (09:01)
[2020-02-21] MEDS ORDERED: Famotidine 20 MG/2 ML SDV IVPUSH ONE (09:01)
[2020-02-21] MEDS ORDERED: Nitroglycerin 0.4 MG Tab.SL SL STA ×2 (09:02→09:42)
[2020-02-21] MEDS: Sodium Chloride 0.9% 10 ML Syringe FLUSH PRN ×2 (09:11→09:47)
[2020-02-21 09:40] LABS: CHLORIDE,CL 99 mmol/L (98-107); SODIUM,NA 134 mmol/L (136-145)
[2020-02-21] MEDS ORDERED: Metoprolol Tartrate 5 MG/5 ML SDV IVPUSH ONE (09:43)
[2020-02-21 10:16] VITALS: BP 153/97; PULSE 76
== END 2020-02-21 10:37 | disposition home or self-care (01) ==
LOC: LL.ED 08:16
DX: F41.8 Other specified anxiety disorders (principal); E87.1 Hypo-osmolality and hyponatremia; R79.89 Other specified abnormal findings of blood chemistry; I10 Essential (primary) hypertension; M79.89 Other specified soft tissue disorders; Z88.1 Allergy status to other antibiotic agents
CPT/HCPCS: 36415; 71045; 80053; 82550; 82553; 83605; 83735; 83880; 84443; 84484; 84550; 85025; 85379; 85610; 85730; 93005; 93010; 96374; 96375; 99284; 99285-25; A9270-GY; J3490

== ENCOUNTER 2021-06-05 15:19 | Emergency (ER) | payer MEDICAID, OTHER ==
[2021-06-05] MEDS ORDERED: cloNIDine 0.1 MG Tab PO ONE (15:51)
[2021-06-05] MEDS ORDERED: LORazepam 0.5 MG Tab PO ONE (16:11)
[2021-06-05 16:23] LABS: ANION GAP 8.7 meq/L (7-15); CHLORIDE,CL 103 mmol/L (98-107); SODIUM,NA 139 mmol/L (136-145)
[2021-06-05 20:34] VITALS: BP 153/105; PULSE 64
== END 2021-06-05 17:10 | disposition home or self-care (01) ==
LOC: LL.ED 15:19
DX: F41.9 Anxiety disorder, unspecified (principal); F43.0 Acute stress reaction; I10 Essential (primary) hypertension; Z88.8 Allergy status to other drugs, medicaments and biological substances
CPT/HCPCS: 36415; 80053; 83735; 85025; 99284; A9270

== ENCOUNTER 2022-09-22 12:28 | Emergency (ER) | payer MEDICAID ==
[2022-09-22 12:34] VITALS: BP 126/76; PULSE 64
[2022-09-22] MEDS: Lidocaine 2% with EPINEPHrine 1:100,000 20 ML MDV INJECT ONE (13:38)
[2022-09-22] MEDS: Lidocaine 2% with EPINEPHrine 1:100,000 20 ML MDV ONE (13:39)
[2022-09-22] MEDS: Diphtheria,Pertussis(Acell),Tetanus Vaccine 0.5 ML Syringe IM ONE (14:33)
[2022-09-22] MEDS: Bacitracin Oint 1 GM U/D Packet ONE (14:35)
[2022-09-22] MEDS: Bacitracin Oint 1 GM U/D Packet TOP ONE (14:36)
== END 2022-09-22 15:00 | disposition home or self-care (01) ==
LOC: LL.ED 12:28
DX: S51.811A Laceration without foreign body of right forearm, initial encounter (principal); I10 Essential (primary) hypertension; Z88.8 Allergy status to other drugs, medicaments and biological substances; Z23 Encounter for immunization; W26.8XXA Contact with other sharp object(s), not elsewhere classified, initial encounter; Y99.0 Civilian activity done for income or pay
CPT/HCPCS: 12002; 90715; 99282; J3490